=== PATIENT | male | born 2005 | race Hispanic/Latino ===

== ENCOUNTER 2023-03-06 15:36 | Emergency (ER) | payer OTHER | END 2023-03-06 16:27 | disposition home or self-care (01) | LOC: VM.ED 15:36 | DX: M23.8X1 Other internal derangements of right knee (principal) | CPT/HCPCS: 73562-RT; 99283 ==

== ENCOUNTER 2023-03-10 08:51 | Emergency (ER) | payer OTHER | END 2023-03-10 13:00 | disposition home or self-care (01) | LOC: VM.ED 08:51 | DX: S83.511D Sprain of anterior cruciate ligament of right knee, subsequent encounter (principal) | CPT/HCPCS: 73721-RT; 99283 ==